=== PATIENT | female | born 1955 | race African-American/Black ===

== ENCOUNTER 2016-11-13 08:08 | Emergency (ER) | payer OTHER ==
[~2016-11-13] VITALS: Ht 167.6 cm; Wt 88.0 kg
[2016-11-13] MEDS ORDERED: ACETAMINOPHEN 500MG TABLET PO STA (10:04)
[2016-11-13] MEDS ORDERED: KETOROLAC 30MG/ML VIAL IM STA (10:04)
[2016-11-13 11:45] VITALS: BP 148/72
== END 2016-11-13 12:12 | disposition home or self-care (01) ==
LOC: ER 09:17
DX: M25.512 Pain in left shoulder (principal); I10 Essential (primary) hypertension; E78.00 Pure hypercholesterolemia, unspecified; E11.9 Type 2 diabetes mellitus without complications; V43.52XA Car driver injured in collision with other type car in traffic accident, initial encounter; Y93.89 Activity, other specified; Y92.89 Other specified places as the place of occurrence of the external cause; Y99.8 Other external cause status
CPT/HCPCS: 70450; 72125; 73030; 82962; 99285; J1885